=== PATIENT | female | born 1945 | race Caucasian/White ===

== ENCOUNTER 2021-07-09 21:44 | Emergency (ER) | payer MEDICARE, SELFPAY ==
[2021-07-09] VITALS (18 sets, daily range): BP systolic 117–197; BP diastolic 72–131; PULSE 68–79; RESP 14–20; TEMP 35.8–36.6; O2SAT 95–100; BMI 24.8
[2021-07-09] MEDS: Etomidate 20 MG/10 ML Vial IV (21:47)
[2021-07-09] MEDS: Succinylcholine Chloride 200 MG/10 ML Vial 100 MG IV (21:48)
--- NOTE | 2021-07-09 21:50 | EKG12_ITS ---
Test Reason : DYSRHYTHMIA Blood Pressure : / mmHG Vent. Rate : 071 BPM Atrial Rate : 071 BPM P-R Int : 180 ms QRS Dur : 120 ms QT Int : 444 ms P-R-T Axes : 057 -42 098 degrees QTc Int : 482 ms Normal sinus rhythm Left axis deviation Left ventricular hypertrophy with QRS widening and repolarization abnormality Abnormal ECG Confirmed by ARNOLDO ROMO, COURTNEY ([id number]), photographic editor DRE SUH ([id number]) on 07/10/2021 12:59:50 PM Referred By: DENNY Confirmed By:TANYA MCLAUGHLIN MD
--- NOTE | 2021-07-09 21:52 | CT_ITS ---
We are attempting to reach an attending provider to discuss findings. An addendum with communication details will be sent when the communication is complete. STUDY: CT BRAIN WITHOUT CONTRAST REASON FOR EXAM: Female, 76 years old. Unresponsive. TECHNIQUE: Transaxial CT imaging of the brain was performed without administration of intravenous contrast material. Individualized dose optimization techniques were used for this CT. COMPARISON: No relevant priors. FINDINGS: Large hemorrhage centered in the right thalamus with a large amount of intraventricular extension. Blood fills the lateral, third and fourth ventricles with obstructive hydrocephalus. Moderate cerebral edema. No herniation. 8mm left shift of the septum pellucidum. Right thalamic hematoma measures 4.8 x 3.6 x 3.7 cm TRV X AP X CC. No fracture. Intracranial soft tissue structures unremarkable. Underlying atherosclerosis. 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 Resulting edema and mass effect but no herniation. Electronically Signed: Fco Cotter MD at 22:24 EDT Tel , Service support ,
--- NOTE | 2021-07-09 21:53 | EDS_ITS ---
HPI History of Present Illness Chief Complaint: Unresponsive Informant: EMS Limited: coma Onset/Context/Timing Onset: Today Context: Sudden Onset Timing: Continuous Current Severity: Severe Maximum Severity: Severe Narrative Narrative: 76-year-old female very limited history due to the patient being unresponsive. 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 Reportedly has been posturing. No known history of seizures in the past. Prior similar symptoms: No Recent Illness/Hospitalization: No PFSH PFSH Medical History Hypertension Home Medications furosemide 40 mg PO DAILY 07/09/21 [History Last Taken Unknown] lisinopril 40 mg PO DAILY 07/09/21 [History Last Taken Unknown] potassium chloride 10 meq PO DAILY 07/09/21 [History Last Taken Unknown] Allergy/AdvReac Type Severity Reaction Status Date / Time No Known Allergies Allergy Verified 07/09/21 22:18 Social History Smoking Status: Unknown if ever smoked ROS ROS ED ROS Narrative Unknown patient unresponsive. Review of Systems ROS Unobtainable: due to endotracheal tube and due to mental status EXAM Physical Exam Narrative Exam Narrative: Elderly female unresponsive. Bowel and bladder incontinence. Initial blood pressure is significantly elevated. HEENT exam pupils are pinpoint. Trachea midline. Lungs clear to auscultation. Heart regular rhythm rate about 70 no murmur. Chest wall nontender. Abdomen soft nontender. Pelvic girdle intact. Flaccid extremities. No deformities. She has mud over her in stool from collapsing in the field. Back no obvious trauma. Neurologically she is unresponsive. Her pupils are pinpoint. She has no seizure activity bedtime she postures. Her tongue looks like she bit the tip of it. There is currently no significant bleeding. Const Vital Signs: 07/09/21 21:47 07/09/21 21:48 07/09/21 21:53 Temperature 98 F Temperature Source Temporal Pulse Rate 73 70 Respiratory Rate 20 H 19 H Respiratory Pattern Normal Blood Pressure Blood Pressure Mean Pulse Ox 95 100 99 Oxygen Delivery Method Mechanical Ventilator Mechanical Ventilator Fraction of Inspired Oxygen (FIO2) 60 07/09/21 21:54 07/09/21 21:55 07/09/21 22:01 Temperature Temperature Source Pulse Rate 79 Respiratory Rate 17 Respiratory Pattern Blood Pressure 197/131 H 197/131 H Blood Pressure Mean 153 153 Pulse Ox 100 100 Oxygen Delivery Method Mechanical Ventilator Fraction of Inspired Oxygen (FIO2) 07/09/21 22:03 07/09/21 22:09 07/09/21 22:17 Temperature Temperature Source Pulse Rate 69 Respiratory Rate 17 Respiratory Pattern Blood Pressure 189/101 H 171/95 H 171/95 H Blood Pressure Mean 130 120 120 Pulse Ox 100 Oxygen Delivery Method Mechanical Ventilator Fraction of Inspired Oxygen (FIO2) 07/09/21 22:18 07/09/21 22:24 07/09/21 22:30 Temperature 96.7 F L Temperature Source Core Pulse Rate 69 68 Respiratory Rate 15 15 Respiratory Pattern Blood Pressure 171/95 H 160/92 H 160/89 H Blood Pressure Mean 120 114 112 Pulse Ox 100 100 Oxygen Delivery Method Mechanical Ventilator Mechanical Ventilator Fraction of Inspired Oxygen (FIO2) Positive well nourished and well developed; Negative for cachectic, contractures or unkempt General Appearance ED: well developed; Negative for unkempt, cachectic, contractures, cyanotic, diaphoretic or NAD Nutritional Appearance: Negative for cachectic HEENT Reports moist mucous membranes Negative for trauma or tenderness Eyes Eyes Narrative: Bilateral pinpoint pupils. Neck no lymphadenopathy, supple and no JVD General: Negative for tenderness Chest Wall inspection of chest normal and palpation of chest normal Resp normal respiratory effort and clear to auscultation bilaterally Resp Narrative: Not protecting her airway. Cardio regular rate, regular rhythm, S1 normal heart sound, S2 normal heart sound and no murmurs GI normal to inspection, nondistended, normoactive bowel sounds, non-tender, non- distended and no masses Inspection: Negative for abdominal distention Auscultation: normoactive bowel sounds Palpation: soft; Negative for tender, guarding or rebound tenderness present Back/Spine no CVA tenderness Extremity normal to inspection General Extremety ED: Negative for edema or tenderness General Extremity: Negative for edema Neuro No oriented x3 and No CN's II-XII intact bilaterally Neuro Narrative: Unresponsive. No purposeful movement. At times posturing. Sensorium / Orientation: Negative for alert Motor Exam: Negative for strength 5/5 throughout Psych Negative for mental status grossly normal Appearance: Negative for unkempt Skin no rashes or lesions noted and no wounds MDM MDM MDM Narrative Medical decision making narrative: Elderly female found down in the field. History of hypertension. Blood pressure significantly elevated my concern is for an intracranial bleed. She had to be intubated on arrival. Intubation was done using etomidate and succinylcholine. 7F ET tube past the first attempt without difficulty 22 at the lips bilateral breath sounds and good vapor. Patient started on nicardipine drip for her hypertension and concern for intracranial bleed. She is on a propofol drip for sedation. I spoke to [facility] patient will be transferred there. Family was okay with her going by helicopter. She will be treated with IV mannitol per [facility] request and 3% hypertonic saline. Lab Data Attestation: I reviewed the patient's lab results. Lab results narrative: CBC White count of 10. Hemoglobin 13.4. Platelet count 207,000. PT PTT INR normal. 13, 27 and 1. BMP unremarkable gap of 5 creatinine is 0.9. Glucose 175. Troponin XII. Labs: Laboratory Results - last 24 hr 07/09/21 07/09/21 07/09/21 21:49 21:49 21:49 WBC 10.2 RBC 4.54 Hgb 13.4 Hct 41.5 MCV 91.4 MCH 29.5 MCHC 32.3 RDW Std Deviation 45.5 H RDW Coeff of [place] 13.4 Plt Count 207 MPV 10.0 Immature Gran % (Auto) 0.600 Neut % (Auto) 83.1 H Lymph % (Auto) 10.0 L [place] % (Auto) 5.5 Eos % (Auto) 0.3 Baso % (Auto) 0.5 Absolute Neuts (auto) 8.4 H Absolute Lymphs (auto) 1.02 Nucleated RBC % 0 PT 13.3 INR 1.1 APTT 27.9 Sodium 140 Potassium 3.4 L Chloride 105 Carbon Dioxide 30.0 Anion Gap 5 BUN 19 H Creatinine 0.91 Estim Creat Clear Calc 53.88 Est GFR (MDRD) Af Amer 78 Est GFR (MDRD) Non-Af 64 BUN/Creatinine Ratio 20.9 H Glucose 175 H Calcium 9.4 Troponin I High Sens 12 Radiography Chest X-Ray - ED: 1 View, Read by ED Physician, Heart, Lungs, Mediastinum, Bony Structures, No Acute Disease and Chronic Changes Diagnostic Testing: Radiology Impression Brain CT 07/09/21 21:52 IMPRESSION: 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 Resulting edema and mass effect but no herniation. 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 Resulting edema and mass effect but no herniation. N.B. : The above Results were Read Back by Fco Cotter MD to Deandre Anderson MD, and understanding confirmed on 07/09/2021 22:38:57 (ET). Electronically Signed: Fco Cotter MD at 22:24 EDT Tel , Service support , Rhythm Strip Rhythm Strip: Sinus Rhythm Rate: 71 Ectopy: None EKG Initial EKG: Attestation: I personally reviewed and interpreted this EKG as follows: Interpretation: Sinus Rhythm and No Acute Injury Pattern Comments: Normal sinus rhythm rate of 71. LVH. no old EKG available for comparison. Prior EKG tracings: not available for review Procedures Intubations Intubation Method: orotracheal Intubation Verification: Positive color change and Bilateral breath sounds confirmed Intubation Complications: no complications Critical Care Time Critical Care Time: Yes Critical care time (excluding procedures): 30-74 minutes, Including time spent:, Discussing w/Patient &/or Family/Residence Counselor, Discussing w/Consultants, Arranging Admission or Transfer, Performing Direct Patient Care at Bedside and - (34 min) Discharge Plan Triage Chief Complaint: Unresponsive ED Provider: Landry Anderson Dx/Rx/DC Orders Clinical Impression: Unresponsive, Endotracheally intubated, Hypertensive emergency, Intracranial bleed, Airway intubation performed without difficulty Prescriptions: No Action furosemide 40 mg tablet 40 mg PO DAILY RF: 0 lisinopril 40 mg tablet 40 mg PO DAILY RF: 0 potassium chloride 10 mEq tablet extended release 10 meq PO DAILY RF: 0 Primary Care Provider: Brooklyn Nunez Referrals: Brooklyn Nunez MD [Primary Care Provider] - Disposition Disposition: [facility]
[2021-07-09 22:00] LABS: Absolute Lymphocyte Count 1.02 X10^3/uL (0.83-4.51); Absolute Neutrophil Count 8.4 X10^3/uL (2.0-7.7); Basophil# 0.05 X10^3/uL; Basophil% 0.5 % (0-1); Eosinophil# 0.03 X10^3/uL; Eosinophils% 0.3 % (0-5); Hematocrit 41.5 % (37-47); Hemoglobin 13.4 g/dL (12.0-15.0); Lymphocyte # 1.02 X10^3/ul (0.83-4.51); Mean Corp Hgb Conc 32.3 g/dL (32-36); Mean Corpuscular Hgb 29.5 pg (27.0-32.0); Mean Corpuscular Volume 91.4 fL (81-99); Monocyte# 0.56 X10^3/uL; Monocyte% 5.5 % (0-10); NRBC Flagged by Analyzer 0 % (0-5); Neutrophil # 8.44 X10^3/uL (2.7-7.7); Neutrophil % 83.1 % (47-70); Platelet Count 207 K/mm3 (150-450); RBC Distribution Width CV 13.4 % (11.6-14.6); RBC Distribution Width SD 45.5 fl (35.1-43.9); Red Blood Count 4.54 M/mm3 (4.2-5.4); White Blood Count 10.2 K/mm3 (4.4-11.0)
--- NOTE | 2021-07-09 22:07 | RAD_ITS ---
STUDY: X-RAY CHEST REASON FOR EXAM: Female, 76 years old. Endotracheal tube TECHNIQUE: AP COMPARISON: None. FINDINGS: Endotracheal tube tip 2.5 cm above the chani. No evidence of pneumonia, pulmonary edema, pneumothorax or pleural effusion. Linear subsegmental left basilar atelectasis. Cardiac silhouette, hilar and mediastinal contours with no acute findings. Heart size normal. Atherosclerosis of the thoracic aorta. Degenerative osseous changes with no acute osseous abnormality. RAD/Chest 1 View (Portable) IMPRESSION: No acute findings. Endotracheal tube tip 2.5 cm above the chani. Electronically Signed: Fco Cotter MD at 22:50 EDT Tel , Service support ,
[2021-07-09 22:12] LABS: International Normalized Ratio 1.1; Partial Thromboplast Time 27.9 Seconds (24.1-36.2); Prothrombin Time (Protime)PT. 13.3 SECONDS (11.7-14.9)
[2021-07-09] MEDS: Propofol 10MG/Ml 1,000 MG/100 ML Bottle 4.4 MG CONT INF (22:21)
[2021-07-09 22:22] LABS: Anion Gap 5 (5-15); BUN 19 mg/dL (7-18); BUN/Creat Ratio 20.9 RATIO (10-20); Calcium,Total 9.4 mg/dL (8.5-10.1); Chloride 105 mmol/L (98-107); Creatinine, Serum 0.91 mg/dL (0.55-1.02); EST Glomerular Filtration Rate 64 mL/min (>60); Est Glom Filt Rate - Afr Amer 78 mL/min (>60); Estimated Creatinine Clearance 53.88 ml/min; Glucose 175 mg/dL (74-106); Potassium 3.4 mmol/L (3.5-5.1); Sodium Level 140 mmol/L (136-145); Troponin-I HS 12 pg/mL (3.0-54.0)
[2021-07-09] MEDS: Mannitol 50gm/250ml 50 GM in Premixed Bag 1 BAG IV ×2 (22:50→23:07)
--- NOTE | 2021-07-09 22:54 | EX.ED.DYSGE1 ---
HPI History of Present Illness Chief Complaint: Unresponsive Informant: EMS Onset/Context/Timing Onset: Today Context: Sudden Onset Current Severity: Severe Maximum Severity: Severe Narrative Narrative: 76-year-old [place] female found down in a field. History of hypertension. On no blood thinners. On arrival was unresponsive and incontinent of stool and urine was emergently intubated on first attempt. Prior similar symptoms: No Recent Ill[facility] Medical History Hypertension Home Medications furosemide 40 mg PO DAILY 07/09/21 [History Last Taken Unknown] lisinopril 40 mg PO DAILY 07/09/21 [History Last Taken Unknown] potassium chloride 10 meq PO DAILY 07/09/21 [History Last Taken Unknown] Allergy/AdvReac Type Severity Reaction Status Date / Time No Known Allergies Allergy Verified 07/09/21 22:18 Social History Smoking Status: Unknown if ever smoked ROS ROS ED ROS Narrative Unknown patient unresponsive. Review of Systems ROS Unobtainable: due to endotracheal tube and due to mental status EXAM Physical Exam Narrative Exam Narrative: 76-year-old female presents unresponsive. H EENT exam pinpoint pupils. No signs of trauma to her face or scalp. Trachea midline no lymphadenopathy. Lungs are clear. Heart regular rhythm no murmur. Chest wall nontender. Abdomen soft nontender. Pelvic girdle intact. Extremities flaccid but nontender no deformities. Back nontender no signs of trauma. Neurologically she is completely unresponsive. Pinpoint pupils. Occasionally postures. She does have a laceration tip of her tongue most likely from biting her tongue. Const Vital Signs: 07/09/21 21:47 07/09/21 21:48 07/09/21 21:53 Temperature 98 F Temperature Source Temporal Pulse Rate 73 70 Respiratory Rate 20 H 19 H Respiratory Pattern Normal Blood Pressure Blood Pressure Mean Pulse Ox 95 100 99 Oxygen Delivery Method Mechanical Ventilator Mechanical Ventilator Fraction of Inspired Oxygen (FIO2) 60 07/09/21 21:54 07/09/21 21:55 07/09/21 22:01 Temperature Temperature Source Pulse Rate 79 Respiratory Rate 17 Respiratory Pattern Blood Pressure 197/131 H 197/131 H Blood Pressure Mean 153 153 Pulse Ox 100 100 Oxygen Delivery Method Mechanical Ventilator Fraction of Inspired Oxygen (FIO2) 07/09/21 22:03 07/09/21 22:09 07/09/21 22:17 Temperature Temperature Source Pulse Rate 69 Respiratory Rate 17 Respiratory Pattern Blood Pressure 189/101 H 171/95 H 171/95 H Blood Pressure Mean 130 120 120 Pulse Ox 100 Oxygen Delivery Method Mechanical Ventilator Fraction of Inspired Oxygen (FIO2) 07/09/21 22:18 07/09/21 22:24 07/09/21 22:30 Temperature 96.7 F L Temperature Source Core Pulse Rate 69 68 Respiratory Rate 15 15 Respiratory Pattern Blood Pressure 171/95 H 160/92 H 160/89 H Blood Pressure Mean 120 114 112 Pulse Ox 100 100 Oxygen Delivery Method Mechanical Ventilator Mechanical Ventilator Fraction of Inspired Oxygen (FIO2) 07/09/21 22:39 07/09/21 22:52 Temperature Temperature Source Pulse Rate 73 Respiratory Rate 15 Respiratory Pattern Blood Pressure 163/102 H 139/82 H Blood Pressure Mean 122 101 Pulse Ox 100 Oxygen Delivery Method Mechanical Ventilator Fraction of Inspired Oxygen (FIO2) Positive well nourished and well developed; Negative for cachectic, contractures or unkempt General Appearance ED: well developed; Negative for unkempt, cachectic, contractures, cyanotic, diaphoretic or NAD Nutritional Appearance: Negative for cachectic HEENT Reports moist mucous membranes Negative for trauma or tenderness Eyes Negative for PERRL or EOMs intact bilaterally Eyes Narrative: Pinpoint pupils bilaterally. Neck no lymphadenopathy, supple and no JVD General: Negative for tenderness Chest Wall inspection of chest normal and palpation of chest normal Resp normal respiratory effort and clear to auscultation bilaterally Auscultation: Negative for rales, rhonchi or wheezes Cardio regular rate, regular rhythm, S1 normal heart sound, S2 normal heart sound and no murmurs GI normal to inspection, nondistended, normoactive bowel sounds, non-tender and non-distended Palpation: soft Back/Spine no CVA tenderness Extremity normal to inspection Extremity Narrative: No purposeful movement. At times posturing. General Extremety ED: Negative for edema or tenderness General Extremity: Negative for edema Neuro Neuro Narrative: Completely unresponsive. Posturing. Pinpoint pupils. Psych Appearance: Negative for unkempt Skin no rashes or lesions noted and no wounds MDM MDM MDM Narrative Medical decision making narrative: Only female presents unresponsive was emergently intubated. Preintubation was given succinyl choline and etomidate. Intubated first attempt with 7F ET tube at 22 at the lips. Good color change. Good vapor. Bilateral breath sounds. Concern for intracranial bleed. Patient be emergently taken to CAT scan. Discussed with family at length. There is fine with [facility] transfer and fine with going by helicopter. They know that she is critically ill. After speaking with [facility] neurosurgery patient be given IV mannitol and hypertonic saline. Lab Data Attestation: I reviewed the patient's lab results. Lab results narrative: CBC White count of 10. Hemoglobin 13.4. PT PTT INR normal. Electrolytes unremarkable. Gap of 5. Creatinine 0.9. Glucose 175. Troponin normal. Labs: Laboratory Results - last 24 hr 07/09/21 07/09/21 07/09/21 21:49 21:49 21:49 WBC 10.2 RBC 4.54 Hgb 13.4 Hct 41.5 MCV 91.4 MCH 29.5 MCHC 32.3 RDW Std Deviation 45.5 H RDW Coeff of [place] 13.4 Plt Count 207 MPV 10.0 Immature Gran % (Auto) 0.600 Neut % (Auto) 83.1 H Lymph % (Auto) 10.0 L [place] % (Auto) 5.5 Eos % (Auto) 0.3 Baso % (Auto) 0.5 Absolute Neuts (auto) 8.4 H Absolute Lymphs (auto) 1.02 Nucleated RBC % 0 PT 13.3 INR 1.1 APTT 27.9 Sodium 140 Potassium 3.4 L Chloride 105 Carbon Dioxide 30.0 Anion Gap 5 BUN 19 H Creatinine 0.91 Estim Creat Clear Calc 53.88 Est GFR (MDRD) Af Amer 78 Est GFR (MDRD) Non-Af 64 BUN/Creatinine Ratio 20.9 H Glucose 175 H Calcium 9.4 Troponin I High Sens 12 Radiography Chest X-Ray - ED: 1 View, Read by ED Physician, Normal, Heart, Lungs, Mediastinum, Bony Structures, No Acute Disease and Chronic Changes Diagnostic Testing: Radiology Impression Brain CT 07/09/21 21:52 IMPRESSION: 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 Resulting edema and mass effect but no herniation. 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 Resulting edema and mass effect but no herniation. N.B. : The above Results were Read Back by Fco Cotter MD to Deandre Anderson MD, and understanding confirmed on 07/09/2021 22:38:57 (ET). Electronically Signed: Fco Cotter MD at 22:24 EDT Tel , Service support , Chest X-Ray 07/09/21 22:07 IMPRESSION: No acute findings. Endotracheal tube tip 2.5 cm above the chani. Electronically Signed: Fco Cotter MD at 22:50 EDT Tel , Service support , Portable single view chest x-ray no acute abnormality. ET tube in good position to 9 cm above the chani. No infiltrates. Normal cardiac silhouette. Also read by the radiologist. Rhythm Strip Rhythm Strip: Sinus Rhythm Rate: 71 Ectopy: None Procedures Intubations Intubation Method: orotracheal Intubation Verification: Positive color change and Bilateral breath sounds confirmed Intubation Complications: no complications Critical Care Time Critical Care Time: Yes Critical care time (excluding procedures): 30-74 minutes, Including time spent:, Discussing w/Patient &/or Family/Economic Development Specialist, Discussing w/Consultants, Arranging Admission or Transfer, Performing Direct Patient Care at Bedside and - (34 min) Discharge Plan Triage Chief Complaint: Unresponsive ED Provider: Landry Anderson Dx/Rx/DC Orders Clinical Impression: Unresponsive, Endotracheally intubated, Hypertensive emergency, Intracranial bleed, Airway intubation performed without difficulty Prescriptions: No Action furosemide 40 mg tablet 40 mg PO DAILY RF: 0 lisinopril 40 mg tablet 40 mg PO DAILY RF: 0 potassium chloride 10 mEq tablet extended release 10 meq PO DAILY RF: 0 Primary Care Provider: Brooklyn Nunez Referrals: Brooklyn Nunez MD [Primary Care Provider] - Disposition [facility]: [facility]
[2021-07-09] MEDS: Sodium Chloride 3% 500 ML 75 ML IV (23:05)
== END 2021-07-09 23:40 | disposition short-term general hospital (02) ==
PROVIDERS: Emergency Provider Emergency Medicine; PCP Internal Medicine
DX: I16.1 Hypertensive emergency (principal); I62.9 Nontraumatic intracranial hemorrhage, unspecified; G91.1 Obstructive hydrocephalus; I10 Essential (primary) hypertension; Z79.899 Other long term (current) drug therapy
CPT/HCPCS: 31500; 31720; 51702; 70450; 71045; 80048; 84484; 85025; 85610; 85730; 87426; 93005; 94002; 99251; 99285; J7030; A4216; G0463; J0330